=== PATIENT | male | born 1965 | race Caucasian/White ===

== ENCOUNTER → 2021-06-27 | Outpatient (CLI) | payer OTHER ==
[~2021-06-27] MED LIST: ATOR20TA58 PO; DEXL60CA2 PO; FAMO40TA4 PO; LISI-130 PO; METF500T16 PO; MULT-690 PO
--- NOTE | 2021-06-27 13:26 | RAD ---
MR#: [id number] Date of Study: 06/27/2021 Ordering Physician: SKYLER FLORES, Referring Physician: KAI ALEXIS Tech: RT Tyler (R) (N) APPROVED REPORT Test Type: Exercise Stress Nurse/Tech: BHAVANA Duenas, SHARONT (R) (N) Test Indications: chest pressure, fatique, dyspnea Cardiac History: htn, dm Medications: see ehr Medical History: see ehr Resting ECG: sr Resting Heart Rate: 78 bpm Resting Blood Pressure: 135/76mmHg Pretest Chest Pain: No chest pain Nurse/Tech Notes lungs cta, heart tones regular Consent: The procedure was explained to the patient in lay terms. Informed consent was witnessed. Tod eout was entered into [facility]. History and Stress Test performed by BHAVANA Duenas ARRT (R) (N) Stress Symptoms No chest pain or symptoms. POST EXERCISE Reason for Termination: Reached target heart rate Target HR: Yes Max HR: 152 bpm 93% of Maximum Predicted HR: 164 bpm Exercise duration: 10:20 min:sec, 4 Stage Exercise capacity: 13.4METs Max Blood Pressure: 148/80mmHg Blood Pressure response to exercise: Normal blood pressure response during stress. Heart Rate response to exercise: normal Chest Pain: No. Arrhythmia: No. ST Change: Yes. ST depression noted in V4-V6, mostly resolved with recovery INTERPRETATION Stress EKG Conclusion: Baseline EKG showed sinus rhythm. No ischemic changes at peak stress. No arr hythmias. Imaging Protocol IMAGE PROTOCOL: Rest Tc-99m/stress Tc-99m 1 day Rest: Stress: Viability: Radiopharm.Tc99m AeexvejebVm40g Sestamibi Dose10.3mCi 31mCi Duration 15min. 10min. Img Date 06/27/2021 06/27/2021 Inj-Img [id number]. 60min. Rest Admin Site:IV - Right AntecubitalAdministrator:RT Tyler (R)(N) Stress Admin Site: IV - Right AntecubitalAdministrator: Arcelia No, NMTCB, ARRT (R)(N) STRESS DATA End Diast. Vol.88.0mlAv. Heart Rate92.0bpm End Syst. Vol.13.0mlCO Index BSA0.0L/min Myocardial Twxl818.0gEject. Eclauxdr69.0% Stress Rates Pk. Fill Rate3.42EDV/secLVtime Pk. Fill 171.41msec Pk. Empty Rate4.41ESV/secLVtime Pk. Hnmgc163.96msec /3 Pk. Fill1.52EDV/sec Stress Scores Regional WT0.00Summed WT1.00 Regional WM0.00Summed WM0.00 Study quality was good. Left Ventricular size was Normal at Rest and Stress. Lung uptake was . Left Ventricular ejection fraction is 85%. The rest and stress images show normal perfusion, normal contraction and thickening. LV Perf. Quant 17 Seg. SSS0.00 17 Seg. SRS0.00 17 Seg. SDS0.00 Stress Defect Extent (% LAD)0.00Rest Defect Extent (% LAD)0.00Rev. Defect Extent (% LAD)0.00 Stress Defect Extent (% LCX) 0.00Rest Defect Extent (% LCX)0.00Rev. Defect Extent (% LCX)0.00 Stress Defect Extent (% RCA)0.00Rest Defect Extent (% RCA)0.00Rev. Defect Extent (% RCA)0.00 Stress Defect Extent (% BAN)0.00Rest Defect Extent (% BAN)0.00Rev. Defect Extent (% BAN)0.00 Conclusion 1. Treadmill exercise cardioisotope stress test did not show any evidence of ischemia or infarct. 2. Normal left ventricular systolic function with ejection fraction calculated at 85%. 3. Low risk for cardiac events. Signed by : Cornell Angeles, Electronically Approved : 06/27/2021 13:26:24
== END ==
LOC: NM 09:15
PROVIDERS: ATTEND Internal Medicine Cardiovascular Disease
DX: R07.89 Other chest pain (principal); R53.83 Other fatigue; R06.00 Dyspnea, unspecified
CPT/HCPCS: 78452; 93017; A9500

== ENCOUNTER → 2021-09-05 | Outpatient (CLI) | payer OTHER ==
--- NOTE | 2021-09-05 15:25 | CARD ---
MR#: [id number] Date of Study: 09/05/2021 Ordering Physician: SKYLER FLORES, Referring Physician: SKYLER FLORES, Tech: Mildred Lehman [facility] AP[facility]OV[facility] RE[facility] EXAM: Two-dimensional and M-mode echocardiogram with Doppler and color Doppler. Other Information Quality : Technically LimitedHR: 81bpm Rhythm : NSR INDICATION Dyspnea 2D DIMENSIONS Left Atrium(2D)3.8 (1.6-4.0cm)IVSd0.7 (0.7-1.1cm) Aortic Root(2D)3.6 (2.0-3.7cm)LVDd4.4 (3.9-5.9cm) LVOT Diameter2.5 (1.8-2.4cm)PWd0.9 (0.7-1.1cm) LVDs2.7 (2.5-4.0cm)FS (%) 38.6 % SV59.8 mlLVEF(%)69.2 (>50%) Aortic Valve AoV Peak Khanh.146.2cm/sAoV VTI26.8cm AO Peak GR.8.5mmHgLVOT Peak Khanh.101.5cm/s AO Mean GR.4mmHgAVA (VMAX)3.45cm2 Mitral Valve MV E Fdnvbnui39.5cm/sMV DECEL [id number] MV A Zgnyyeid16.2cm/sE/A Ratio1.1 Pulmonary Valve PV Peak Wxpcvdka562.6cm/s Tricuspid Valve TR P. Jmqxbuzz415fg/sTR Peak Gr.25mmHg LEFT VENTRICLE The left ventricle is normal size. There is normal left ventricular wall thickness. The left ventricu lar systolic function is normal. Estimated ejecion fraction 65%. There is normal LV segmental wall m otion. The left ventricular diastolic function and filling is normal for age. RIGHT VENTRICLE The right ventricle is normal size. There is normal right ventricular wall thickness. The right ventr icular systolic function is normal. ATRIA The left atrium size is normal. The right atrium size is normal. The interatrial septum is intact wit h no evidence for an atrial septal defect or patent foramen ovale as noted on 2-D or Doppler imaging. AORTIC VALVE The aortic valve is normal in structure and function. Doppler and Color Flow revealed no significant aortic regurgitation. There is no significant aortic valvular stenosis. MITRAL VALVE The mitral valve is normal in structure and function. There is no evidence of mitral valve prolapse. There is no mitral valve stenosis. Doppler and Color Flow revealed no mitral valve regurgitation note d. TRICUSPID VALVE The tricuspid valve is normal in structure and function. Doppler and Color Flow revealed trace tricus pid regurgitation. Estimated PAP 25-30 mmHg. There is no tricuspid valve stenosis. PULMONIC VALVE The pulmonary valve is normal in structure and function. Doppler and Color Flow revealed no pulmonic valvular regurgitation. GREAT VESSELS The aortic root is normal in size. The ascending aorta is normal in size. The IVC is normal in size a nd collapses >50% with inspiration. PERICARDIAL EFFUSION There is no evidence of significant pericardial effusion. Critical Notification Critical Value: No <Conclusion> The left ventricular systolic function is normal. Estimated ejecion fraction 65%. There is normal LV segmental wall motion. Trace tricuspid regurgitation. Estimated PAP 25-30 mmHg. There is no evidence of significant pericardial effusion. Signed by : Cornell Angeles, Electronically Approved : 09/05/2021 15:25:44
== END ==
LOC: ECHO 13:58
PROVIDERS: ATTEND Internal Medicine Cardiovascular Disease
DX: R01.1 Cardiac murmur, unspecified (principal)
CPT/HCPCS: 93306; C8929